=== PATIENT | female | born 2000 | race Caucasian/White ===

== ENCOUNTER 2019-01-21 01:38 | Emergency (ER) | payer BC ==
[~2019-01-21] VITALS: Ht 172.7 cm; Wt 59.1 kg
[2019-01-21 01:45] VITALS: BP 131/70; PULSE 80; TEMP 98.7
[2019-01-21] MEDS ORDERED: ZOLOFT 50MG50 MG PO (01:47)
== END 2019-01-21 02:15 | disposition home or self-care (01) ==
LOC: COL.ER 01:38
DX: S00.01XA Abrasion of scalp, initial encounter (principal); F32.9 Major depressive disorder, single episode, unspecified; W20.8XXA Other cause of strike by thrown, projected or falling object, initial encounter; Z23 Encounter for immunization

== ENCOUNTER 2019-03-19 17:56 | Emergency (ER) | payer BC ==
[~2019-03-19] VITALS: Ht 172.7 cm; Wt 59.1 kg
[~2019-03-19 17:56] MED LIST: ZOLOFT 50MG50 MG PO
[2019-03-19 18:04] VITALS: BP 127/73; TEMP 98.4
[2019-03-19 19:00] VITALS: PULSE 81
== END 2019-03-19 18:58 | disposition home or self-care (01) ==
LOC: COL.ER 17:56
DX: S60.221A Contusion of right hand, initial encounter (principal); W22.8XXA Striking against or struck by other objects, initial encounter